=== PATIENT | male | born 1985 | race Caucasian/White ===

== ENCOUNTER 2018-11-02 16:41 | Emergency (ER) | payer SELFPAY, MEDICAID ==
[2018-11-02] MEDS: IBUPROFEN 600 MG TAB PO (19:25)
== END 2018-11-02 22:13 | disposition home or self-care (01) ==
LOC: FTE 16:41
DX: R07.81 Pleurodynia (principal); Z87.891 Personal history of nicotine dependence
CPT/HCPCS: 71045; 71100; 99283-25

== ENCOUNTER 2019-04-30 21:59 | Emergency (ER) | payer SELFPAY | END 2019-05-01 00:49 | disposition home or self-care (01) | LOC: FTE 05-01 00:49 | DX: R11.0 Nausea (principal); F17.210 Nicotine dependence, cigarettes, uncomplicated | CPT/HCPCS: 99283 ==